=== PATIENT | female | born 1995 | race African-American/Black ===

== ENCOUNTER 2016-10-14 10:06 | Emergency (ER) | payer SELFPAY ==
[~2016-10-14 10:06] MED LIST: POTA20TA4 PO
[2016-10-14 10:10] VITALS: BP 120/73
[2016-10-14] MEDS ORDERED: HYDR-971 PO (10:32)
[2016-10-14] MEDS ORDERED: AMOX500C PO (10:32)
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
== END 2016-10-14 10:53 | disposition home or self-care (01) ==
LOC: ER 10:06
DX: H92.01 Otalgia, right ear (principal); R51 Headache; K08.89 Other specified disorders of teeth and supporting structures; F12.10 Cannabis abuse, uncomplicated; Z59.0 Homelessness
CPT/HCPCS: 99283

== ENCOUNTER 2017-03-25 19:49 | Emergency (ER) | payer SELFPAY ==
[~2017-03-25] VITALS: Ht 157.5 cm; Wt 43.1 kg
[~2017-03-25 19:49] MED LIST changes: +AMOX500C PO; +HYDR-971 PO
[2017-03-25 20:03] VITALS: BP 124/74
[2017-03-25] MEDS ORDERED: IBUP-1060 PO (20:06)
[2017-03-25] MEDS ORDERED: AMOX875T PO (20:06)
--- NOTE | 2017-03-25 20:06 | PHYS DOC ---
Past Medical History Past Medical History: No Pertinent History Additional Past Medical Histor: ANOREXIA Past Surgical History: No Surgical History Alcohol Use: None Drug Use: Marijuana Adult General Chief Complaint Chief Complaint: EARACHE/EAR PAIN [facility] Patient is a 21 year old female who presents with 10 out of 10 left ear pain that began 2 days ago. Patient denies any fever. Denies any cough or congestion. Patient appears intoxicated. Review of Systems Review of Systems Constitutional: Denies fever or chills [] Eyes: Denies change in visual acuity, redness, or eye pain [] HENT: Left ear pain Respiratory: Denies cough or shortness of breath [] Cardiovascular: No additional information not addressed in HPI [] Musculoskeletal: Denies back pain or joint pain [] Integument: Denies rash or skin lesions [] Neurologic: Denies headache, focal weakness or sensory changes [] Allergies Allergies Allergies Coded Allergies Type Severity Reaction Last Updated Verified No Known Drug Allergies 09/20/15 No Physical Exam Physical Exam Constitutional: Well developed, well nourished, no acute distress, non-toxic appearance. [] HENT: Normocephalic, atraumatic, bilateral external ears normal, oropharynx moist, no oral exudates, nose normal. [] Left TM is mildly injected. Right TM has slight injection Eyes: PERRLA, EOMI, conjunctiva normal, no discharge. [] Neck: Normal range of motion, no tenderness, supple, no stridor. [] Cardiovascular:Heart rate regular rhythm, no murmur [] Lungs & Thorax: Bilateral breath sounds clear to auscultation [] Abdomen: Bowel sounds normal, soft, no tenderness, no masses, no pulsatile masses. [] Skin: Warm, dry, no erythema, no rash. [] Back: No tenderness, no CVA tenderness. [] Extremities: No tenderness, no cyanosis, no clubbing, ROM intact, no edema. [] Neurologic: Alert and oriented X 3, normal motor function, normal sensory function, no focal deficits noted. [] Psychologic: Affect normal, judgement normal, mood normal. [] Current Patient Data Vital Signs Vital Signs Date Time Temp Pulse Resp B/P (MAP) Pulse Ox O2 Delivery O2 Flow Rate FiO2 03/25/17 20:03 98.4 73 16 100 Room Air 98.4 EKG EKG [] Radiology/Procedures Radiology/Procedures [] Course & Med Decision Making Course & Med Decision Making Pertinent Labs and Imaging studies reviewed. (See chart for details) Patient has bilateral otitis media. Discharged with amoxicillin for 10 days. Ibuprofen for pain. Follow-up with PCP in one to 2 weeks. She appears intoxicated. Dragon Disclaimer Dragon Disclaimer This electronic medical record was generated, in whole or in part, using a voice recognition dictation system. Departure Departure Impression: Primary Impression: Otitis media Disposition: HOME, SELF-CARE Condition: STABLE Referrals: NO PCP (PCP) follow up with your doctor in one week Patient Instructions: Otitis Media, Adult Additional Instructions: You were seen with an ear infection. Please complete your antibiotics. Take the prescribed pain medicine as needed. Follow-up with your doctor in one week. Scripts Ibuprofen (IBUPROFEN) 800 Mg Tablet 800 MG PO PRN Q6HRS Y for INFLAMMATION, #20 TAB Prov: MEDARDO WARE APRN 03/25/17 Amoxicillin (AMOXICILLIN) 875 Mg Tablet 1 TAB PO BID, #20 TAB Prov: MEDARDO WARE APRN 03/25/17 Problem Qualifiers Primary Impression: Otitis media Otitis media type: other nonsuppurative Chronicity: acute Laterality: bilateral Recurrence: not specified as recurrent Qualified Codes: H65.193 - Other acute nonsuppurative otitis media, bilateral MEDARDO WARE APRN Mar 25, 2017 20:06
== END 2017-03-25 20:24 | disposition home or self-care (01) ==
LOC: ER 19:49
DX: H66.93 Otitis media, unspecified, bilateral (principal); F12.10 Cannabis abuse, uncomplicated
CPT/HCPCS: 99283

== ENCOUNTER 2017-03-26 09:28 | Emergency (ER) | payer SELFPAY ==
[2017-03-25 20:03] VITALS: BP 124/74
[~2017-03-26 09:28] MED LIST changes: +AMOX875T PO; +IBUP-1060 PO
== END 2017-03-26 09:40 | disposition left against medical advice (07) ==
LOC: ER 09:28
DX: Z53.21 Procedure and treatment not carried out due to patient leaving prior to being seen by health care provider (principal)

== ENCOUNTER 2017-09-26 14:42 | Emergency (ER) | payer SELFPAY ==
[2017-09-26 18:22] LABS: URINE HCG POC HCG NEGATIVE (Negative)
[2017-09-26 18:33] LABS: AMPHETAMINE/METHAMPHETAMINE NEG (NEG); BARBITURATES NEG (NEG); BENZODIAZEPINES NEG (NEG); CANNABINOIDS POS (NEG); COCAINE NEG (NEG); ETHANOL, URINE NEG (NEG); METHADONE NEG (NEG); OPIATES NEG (NEG); PHENCYCLIDINE POS (NEG)
== END 2017-09-26 19:25 | disposition home or self-care (01) ==
LOC: ER 14:42
DX: M54.2 Cervicalgia (principal); M25.512 Pain in left shoulder; M25.511 Pain in right shoulder; F12.10 Cannabis abuse, uncomplicated; F41.0 Panic disorder [episodic paroxysmal anxiety]; Y08.89XA Assault by other specified means, initial encounter; Y93.89 Activity, other specified; Y92.89 Other specified places as the place of occurrence of the external cause; Y99.8 Other external cause status
CPT/HCPCS: 70450; 72125; 80307; 81025; 99285-25

== ENCOUNTER 2017-09-27 21:50 | Emergency (ER) | payer SELFPAY ==
[2017-09-27] MEDS: hydrOXYzine PAMOATE 25 MG CAPSULE PO (22:50)
[2017-09-27] MEDS: LORazepam 1 MG TABLET PO (22:50)
[2017-09-27 23:01] LABS: BARBITURATES NEG (NEG); BENZODIAZEPINES NEG (NEG); CANNABINOIDS POS (NEG); COCAINE POS (NEG); METHADONE NEG (NEG); OPIATES NEG (NEG); PHENCYCLIDINE POS (NEG)
[2017-09-27 23:06] LABS: AMPHETAMINE/METHAMPHETAMINE NEG (NEG); ETHANOL, URINE NEG (NEG)
== END 2017-09-28 00:32 | disposition home or self-care (01) ==
LOC: ER 09-28 00:32
DX: F12.10 Cannabis abuse, uncomplicated (principal); F41.9 Anxiety disorder, unspecified
CPT/HCPCS: 80307; 99284; Q0177

== ENCOUNTER 2019-10-21 02:03 | Emergency (ER) | payer SELFPAY ==
[~2019-10-21] VITALS: Ht 165.1 cm; Wt 44.5 kg
[~2019-10-21 02:03] MED LIST changes: +AMOX1TAB10 PO; +HYDR-3164 PO; -HYDR-971 PO
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
[2019-10-21 02:47] LABS: BASO % 1 % (0-3); EOS # 0.1 x10^3/uL (0.0-0.7); EOS % 2 % (0-3); HEMATOCRIT 35.3 % (36.0-47.0); HEMOGLOBIN 11.5 g/dL (12.0-15.5); LYMPH # 2.6 x10^3/uL (1.0-4.8); LYMPH % 38 % (24-48); MEAN CORPUSCULAR HEMOGLOBIN 28 pg (25-35); MEAN CORPUSCULAR HGB CONC 33 g/dL (31-37); MEAN CORPUSCULAR VOLUME 86 fL (79-100); MONO # 0.5 x10^3/uL (0.0-1.1); MONO % 8 % (0-9); NEUT # 3.5 x10^3/uL (1.8-7.7); NEUT % 52 % (31-73); PLATELET COUNT 283 x10^3/uL (140-400); RED BLOOD COUNT 4.09 x10^6/uL (3.50-5.40); RED CELL DISTRIBUTION WIDTH 13.7 % (11.5-14.5); WHITE BLOOD COUNT 6.8 x10^3/uL (4.0-11.0)
[2019-10-21 02:53] LABS: CALCIUM 8.9 mg/dL (8.5-10.1); CREATININE 0.8 mg/dL (0.6-1.0); GFR 105.8; POTASSIUM 3.5 mmol/L (3.5-5.1)
[2019-10-21 02:57] LABS: BILIRUBIN,URINE NEGATIVE (NEG); CLARITY,URINE CLEAR; COLOR,URINE YELLOW; NITRITE,URINE NEGATIVE (NEG); PROTEIN,URINE NEGATIVE (NEG-TRACE); UROBILINOGEN,URINE 0.2 mg/dL (0.2 mg/dL)
[2019-10-21 02:58] LABS: ALBUMIN 3.8 g/dL (3.4-5.0); DIRECT BILIRUBIN 0.1 mg/dL (0.0-0.2); MAGNESIUM 1.6 mg/dL (1.8-2.4); TOTAL BILIRUBIN 0.2 mg/dL (0.2-1.0); TOTAL PROTEIN 7.5 g/dL (6.4-8.2)
[2019-10-21 03:03] LABS: BARBITURATES NEG (NEG); BENZODIAZEPINES NEG (NEG); CANNABINOIDS POS (NEG); COCAINE NEG (NEG); METHADONE NEG (NEG); OPIATES NEG (NEG); PHENCYCLIDINE NEG (NEG)
[2019-10-21 03:04] LABS: AMPHETAMINE/METHAMPHETAMINE NEG (NEG)
[2019-10-21 03:08] LABS: SQUAMOUS EPITHELIAL CELL,UR MOD /LPF
[2019-10-21 03:09] LABS: BACTERIA,URINE 0 /HPF (0-FEW); RBC,URINE 0 /HPF (0-2); WBC,URINE RARE /HPF (0-4)
[2019-10-21 03:37] LABS: U PREG PATIENT NEGATIVE (NEG)
[2019-10-21 06:00] VITALS: BP 104/64
== END 2019-10-21 06:17 | disposition home or self-care (01) ==
LOC: ER 02:03
DX: F12.10 Cannabis abuse, uncomplicated (principal); F17.200 Nicotine dependence, unspecified, uncomplicated; Z98.890 Other specified postprocedural states
CPT/HCPCS: 36415; 80048; 80076; 80307; 81001; 81025; 83735; 85025; 99283; G0480